=== PATIENT | male | born 1950 | race Caucasian/White ===

== ENCOUNTER 2024-07-08 21:40 | Emergency (ER) | payer BC ==
[~2024-07-08] VITALS: Ht 172.7 cm; Wt 103.2 kg
[2024-07-08] MEDS ORDERED: LEVOTHYROXINE100 MCG PO (22:05)
[2024-07-08] MEDS ORDERED: ATORVASTATIN CA40 MG PO (22:05)
[2024-07-08] MEDS ORDERED: LISINOPRIL40 MG PO (22:06)
[2024-07-08] MEDS ORDERED: GABAPENTIN800 MG PO (22:06)
[2024-07-08] MEDS ORDERED: CANDICIDAL CAP1 EACH PO (22:06)
[2024-07-08] MEDS ORDERED: LEVEMIR100 UNIT/1 SUB-Q (22:06)
[2024-07-08] MEDS ORDERED: D3-200050 MCG PO (22:07)
[2024-07-08 22:08] LABS: BASOPHILS 0.7 % (0-2); EOSINOPHILS 3.9 % (0-6); HEMATOCRIT 44.6 % (35.0-50.0); HEMOGLOBIN 14.7 g/dL (12.0-18.0); MCH 30.3 (27-36); MCHC 32.9 g/dl (30-36); MCV 91.9 fl (81-99); MONOCYTES 5.8 % (0-12); NEUTROPHILS 78.6 % (39-80); PLATELET COUNT 145 K/uL (140-440); RBC 4.85 M/ul (4.3-5.7); RDW 13.7 (10.5-15.0)
[2024-07-08 22:18] LABS: ALBUMIN 3.7 g/dL (3.4-5.0); ALBUMIN/GLOBULIN RATIO 0.93 (1.1-2.4); ANION GAP 14.3 (7-21); BILIRUBIN, TOTAL 0.4 ng/dL (0.2-1.0); BUN/CREATININE RATIO 15.25 (6.0-28.6); CALCIUM 9.5 mg/dL (8.5-10.1); CREATININE, SERUM 2.95 mg/dL (0.70-1.30); POTASSIUM 4.3 mmol/L (3.5-5.1); PROTEIN, TOTAL 7.7 g/dL (6.4-8.2)
[2024-07-08 22:52] VITALS: BP 142/89
== END 2024-07-08 22:53 | disposition home or self-care (01) ==
LOC: ED 21:40
PROVIDERS: Emergency Medicine
DX: E11.65 Type 2 diabetes mellitus with hyperglycemia (principal); Z79.890 Hormone replacement therapy; Z79.4 Long term (current) use of insulin; Z79.899 Other long term (current) drug therapy
CPT/HCPCS: 36415; 80053; 82010; 85025; 99283

== ENCOUNTER 2025-06-20 19:00 | Emergency (ER) | payer OTHER, BC ==
[~2025-06-20] VITALS: Ht 172.7 cm; Wt 92.5 kg
[~2025-06-20 19:00] MED LIST: ATORVASTATIN CA40 MG PO; CANDICIDAL CAP1 EACH PO; D3-200050 MCG PO; GABAPENTIN800 MG PO; LEVEMIR100 UNIT/1 SUB-Q; LEVOTHYROXINE100 MCG PO; LISINOPRIL40 MG PO
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
[2025-06-20] MEDS ORDERED: TRAMADOL HCL50 MG PO (23:24)
[2025-06-20] MEDS ORDERED: TRAMADOL HCL 50 MG HOME.PACK PO ONE (23:30)
[2025-06-20 23:52] VITALS: BP 139/73
== END 2025-06-20 23:53 | disposition home or self-care (01) ==
LOC: ED 19:00
DX: S16.1XXA Strain of muscle, fascia and tendon at neck level, initial encounter (principal); S00.83XA Contusion of other part of head, initial encounter; E11.9 Type 2 diabetes mellitus without complications; Z79.4 Long term (current) use of insulin; Z79.899 Other long term (current) drug therapy
CPT/HCPCS: 70450; 70486; 72125; 99284-25; A9270